=== PATIENT | male | born 1990 | race African-American/Black ===

== ENCOUNTER 2020-09-21 00:24 | Emergency (ER) | payer OTHER ==
[2020-09-21] MEDS ORDERED: ACETAMINOPHEN 500 MG TABLET PO ONE (01:00)
--- NOTE | 2020-09-21 01:47 | PHYS DOC ---
Adult General HPI HPI Patient is a 30-year-old male presenting for headache. Reports having history of high blood pressure in the past but is never taken anything for this. Reports he has [facility] in [facility] past 10 years and was recently discharged from [facility] and has been in quarantine prior to rematriculating out with society per protocol. States he got the [employer] COVID-19 vaccine today and approximately 8 to 12 hours after vaccination, reports having subjective fevers, chills, headache, arm pain and palpitations. Denies vision changes, chest pain, torso ripping or tearing sensation, shortness of breath, abdominal pain, neurologic deficits. States he was concerned about a possible reaction or symptomatic hypertension and subsequently presented to our ER for evaluation Review of Systems Review of Systems Fourteen body systems of review of systems have been reviewed. See HPI for pertinent positives and negative responses, other rascon all other systems are negative, non-pertinent or non-contributory Current Medications Current Medications Current Medications Medications (Trade) Dose Ordered Sig/Bora Start Time Stop Time Status Last Admin Dose Admin Acetaminophen (Tylenol) 1,000 mg 1X ONCE 09/21/20 00:45 09/21/20 00:46 UNV Physical Exam Physical Exam Constitutional: Well developed, well nourished, no acute distress, non-toxic appearance. HENT: Normocephalic, atraumatic, bilateral external ears normal, oropharynx moist, no oral exudates, nose normal. Eyes: PERRLA, EOMI, conjunctiva normal, no discharge. Neck: Normal range of motion, no tenderness, supple, no stridor. Cardiovascular: Heart rate regular, sinus rhythm, no murmurs rubs or gallops Lungs & Thorax: Bilateral breath sounds clear to auscultation Abdomen: Bowel sounds normal, soft, no tenderness, no masses, no pulsatile masses. Nonsurgical abdomen, no peritoneal signs Skin: Warm, dry, no erythema, no rash. Back: No tenderness, no CVA tenderness. Extremities: No tenderness, no cyanosis, no clubbing, ROM intact, no edema. Neurologic: Alert and oriented X 3, grossly normal motor & sensory function, no focal deficits noted. Psychologic: Anxious mood and affect EKG EKG EKG ordered and interpreted by myself at 00 45 hours as sinus rhythm at 101 bpm, unremarkable intervals, no axis deviation, T wave inversions noted in lead III otherwise no ischemic findings, no STEMI, no prior EKG to compare to Radiology/Procedures Radiology/Procedures [] Heart Score C/O Chest Pain: No HEART Score for Chest Pain: HEART Score for Chest Pain Response (Comments) Value History Slighlty/Non-Suspicious 0 ECG Normal 0 Age < 45 0 Risk Factors No Risk Factors 0 Total 0 Risk Factors: Risk Factors: DM, Current or recent (<one month) smoker, HTN, HLP, family history of CAD, obesity. Risk Scores: Risk Factors: DM, Current or recent (<one month) smoker, HTN, HLP, family history of CAD, obesity. Course & Med Decision Making Course & Med Decision Making Pertinent Labs and Imaging studies reviewed. (See chart for details) [] Dragon Disclaimer Dragon Disclaimer This electronic medical record was generated, in whole or in part, using a voice recognition dictation system. Departure Departure: Impression: Primary Impression: Vaccine reaction Disposition: 01 DC HOME SELF CARE/HOMELESS Condition: STABLE Referrals: PCP,NO (PCP) Additional Instructions: As discussed prior to ER departure, please use the attached resource list to identify a primary care provider of your liking to call first thing in the morning and schedule outpatient follow-up for today's ER visit. I recommend taking Tylenol as needed for pains, aches and fever. Continue good fluid rehydration with water. Please keep a blood pressure log of at least 2 or 3 values daily until you can be seen in outpatient setting so the primary care provider can review these and determine if medication is necessary. If any concerning signs or symptoms present prior to outpatient follow-up please do not hesitate to come back for repeat evaluation. It was a pleasure to take care of you and I wish you the best going forward KEISHA MOREL DO Sep 21, 2020 01:47
--- NOTE | 2020-09-22 07:58 | EKG ---
[address] [address] Test Date: 2020-09-21 Test Time: 00:42:48 Pat Name: YOSI REA Department: Room: Gender: M Sheet Manager: : 1990 Requested By: KEISHA MOREL Order Number: [id number] Reading MD: Measurements Intervals [place] Rate: P: WI: QRS: QRSD: T: QT: QTc: Interpretive Statements
== END 2020-09-21 02:15 | disposition home or self-care (01) ==
LOC: ER 00:24
DX: R50.83 Postvaccination fever (principal); R51.9 Headache, unspecified; T50.Z95A Adverse effect of other vaccines and biological substances, initial encounter; Y92.89 Other specified places as the place of occurrence of the external cause
CPT/HCPCS: 93005; 99283

== ENCOUNTER 2021-02-18 21:26 | Emergency (ER) | payer OTHER ==
[~2021-02-18] VITALS: Ht 170.2 cm; Wt 106.0 kg
[2021-02-18 21:35] VITALS: BP 133/89
[2021-02-18] MEDS ORDERED: AMOX500C PO (22:02)
--- NOTE | 2021-02-18 22:03 | PHYS DOC ---
Past History Past Medical History: Hypertension Past Surgical History: No Surgical History Alcohol Use: Rarely Adult General Chief Complaint Chief Complaint: DENTAL PROBLEM HPI HPI Patient is a 31-year-old male who presents with right upper molar dental pain for the last couple of days, 7 out of 10, sharp in nature. States he had not taken any medications for this and has not seen a dentist. States he has poor dentition generally but had not seen a dentist in a while and would like some information on dentists. Denies any pain or trouble swallowing, fevers, neck pain, nausea, vomiting. No other traumas to the mouth. Review of Systems Review of Systems Review of systems otherwise unremarkable except noted in HPI Allergies Allergies Allergies Coded Allergies Type Severity Reaction Last Updated Verified No Known Drug Allergies 09/29/20 No Physical Exam Physical Exam Constitutional: Well developed, well nourished, no acute distress, non-toxic appearance. [] HENT: Normocephalic, atraumatic, bilateral external ears normal, oropharynx moist, no oral exudates, nose normal, multiple dental caries, upper right molar carry with erythematous gumline. [] Neck: Normal range of motion, no tenderness, supple, no stridor. [] Skin: Warm, dry, no erythema, no rash. [] Neurologic: Alert and oriented X 3, no focal deficits noted. [] Psychologic: Affect normal, judgement normal, mood normal. [] Current Patient Data Vital Signs Vital Signs Date Time Temp Pulse Resp B/P (MAP) Pulse Ox O2 Delivery O2 Flow Rate FiO2 02/18/21 21:35 98.1 89 20 133/89 98 Room Air EKG EKG [] Radiology/Procedures Radiology/Procedures [] Heart Score C/O Chest Pain: No Risk Factors: Risk Factors: DM, Current or recent (<one month) smoker, HTN, HLP, family history of CAD, obesity. Risk Scores: Risk Factors: DM, Current or recent (<one month) smoker, HTN, HLP, family history of CAD, obesity. Course & Med Decision Making Course & Med Decision Making Patient is a 31-year-old male presents with dental pain Vital signs not concerning. Physical exam noted above. Given oral pain medicine here in the ED started on amoxicillin. Given resources for multiple dental clinics and emergency dentist. Advised to start calling around for dentist first thing Saturday morning as he may need a root canal or extraction. Advised on pain management at home. Advised to take his amoxicillin as prescribed. Patient grateful, verbalized understanding and agreed with plan of discharge. [] Rick Disclaimer Rick Disclaimer This electronic medical record was generated, in whole or in part, using a voice recognition dictation system. Departure Departure: Impression: Primary Impression: Pain, dental Disposition: HOME / SELF CARE / HOMELESS Condition: GOOD Referrals: PCP,NO (PCP) JAIME CHESTER MD Patient Instructions: Dental Pain Additional Instructions: Thank you for coming into the emergency department tonight and allowing us to take care of you. Please begin a Tylenol, ibuprofen and Orajel regimen as we discussed for your symptom management at home. Please take your amoxicillin antibiotic as prescribed until gone. You were given community resource numbers for multiple dental care clinics and the number for the emergency dental clinic as well. Please call them Saturday and set up appointment as soon as possible discussed the need for a root canal or extraction versus repair. Please come back to the emergency department if you have new or concerning symptoms as discussed. Scripts Amoxicillin (AMOXICILLIN) 500 Mg Capsule 1 CAP PO BID for dental pain for 10 Days, #19 CAP Prov: SUNITHA VÁSQUEZ MD 02/18/21 SUNITHA VÁSQUEZ MD Feb 18, 2021 22:03
[2021-02-18] MEDS ORDERED: IBUPROFEN 600 MG TABLET. PO ONE (22:15)
[2021-02-18] MEDS ORDERED: oxyCODONE/APAP 5/325 1 TAB TABLET PO ONE (22:15)
[2021-02-18] MEDS ORDERED: AMOXICILLIN 250 MG CAPSULE PO ONE (22:15)
== END 2021-02-18 22:15 | disposition home or self-care (01) ==
LOC: ER 21:26
DX: K02.9 Dental caries, unspecified (principal)
CPT/HCPCS: 99284